=== PATIENT | female | born 1985 | race Caucasian/White ===

== ENCOUNTER 2023-02-07 06:11 | Emergency (ER) | payer OTHER, SELFPAY ==
[2023-02-07] VITALS (28 sets, daily range): BP systolic 115–148; BP diastolic 86–105; PULSE 0–86; RESP 10–34; O2SAT 95–100
--- NOTE | ~2023-02-07 | CT_ITS ---
EXAMINATION: CTA chest PE protocol DATE: 02/07/2023 08:53 INDICATION: Chest pain. TECHNIQUE: Computed tomography angiography (CTA) of the chest was performed with 100 mL Omnipaque-350 intravenous contrast timed to evaluate the pulmonary arteries. Coronal maximum intensity projection 3D-reconstructions were created by the technologist. Automated exposure control and iterative reconst ruction technique were employed. The dose-length product was 247.00 mGy-cm. COMPARISON: Chest single view 02/07/2023 FINDINGS: The lungs demonstrate minimal dependent atelectasis. No pleural effusion. There is no pulmo nary embolus. The heart size is normal. No pericardial effusion. There is cortical thinning of right kidney. There is mild thoracic spondylosis. IMPRESSION: 1. No pulmonary embolus. Reviewed, dictated and finalized at location A. IMPRESSION: 1. No pulmonary embolus.
--- NOTE | ~2023-02-07 | XR_ITS ---
Portable chest x-ray Comparison: None Clinical History: Chest pain Findings: Lungs are clear, without focal consolidation or pleural effusion. Cardiomediastinal silho uette is unremarkable. Bones and soft tissues are unremarkable. Impression: Normal chest. Reviewed, dictated and finalized at location M. Impression: Normal chest.
--- NOTE | 2023-02-07 06:21 | ECG_ITS ---
Measurements Intervals [place] Rate: 69 P: 54 TX: 205 QRS: -4 QRSD: 85 T: 22 QT: 364 QTc: 392 Interpretive Statements SINUS RHYTHM NORMAL ECG NO PREVIOUS ECG AVAILABLE FOR COMPARISON Electronically Signed On 02-07-2023 16:16:00 CDT by Alan Ardon M.D.
--- NOTE | 2023-02-07 07:14 | ED.CHESTPAIN ---
HPI - Chest Pain General Chief Complaint: Chest Pain Stated Complaint: chest pain Time Seen by Provider: 02/07/23 07:02 Source: RN notes reviewed History of Present Illness HPI narrative: Patient presents emergency room from home for chest pain. Patient states chest pain woke her from sleep approximately 5 AM this morning. The pain was located in the midsternal chest and was described as a heaviness in nature states that it did not radiate and it was associated with nausea and diaphoresis. Patient states that the pain is now resolved at this time lasted for approximately 10 minutes. States that she has had no pain since that time she denies any vomiting or diarrhea did note some mild shortness of breath with the pain. States that she has a history recently of having episode of chest pain gone to the ER approximately month ago and was diagnosed with bigeminy and placed on metoprolol at that time she is followed by Dr. Mclean for cardiology and had worn a Holter monitor for approximately week that did show some intermittent bigeminy following that. States that she usually feels when she is in her bigeminy and did not feel like at this morning but this felt different Related Data Home Medications Medication Instructions Recorded Confirmed etonogestrel 0.12 mg-ethinyl 1 vag ring vaginal ONCE 11/15/22 01/11/23 estradiol 0.015 mg/24 hr vaginal ring (NuvaRing) metoprolol succinate 50 mg 50 mg PO DAILY 01/11/23 tablet,extended release 24 hr Allergies Allergy/AdvReac Type Severity Reaction Status Date / Time No Known Allergies Allergy Unverified 01/11/23 09:42 Review of Systems Review of Systems: Gen.: Denies fevers or chills ENT: Denies congestion Respiratory: Denies cough, reports shortness of breath CV: see HPI GI: Denies abdominal pain emesis or diarrhea reports nausea denies Musculoskeletal: Denies back pain or muscle pain Neuro: Denies numbness, tingling, weakness or focal weakness Skin: Denies rash Except as documented, all other systems reviewed and negative [facility] Past Medical History Medical History (Updated 02/07/23 @ 10:44 by Lucas Reis DO) Bigeminy History of palpitations Social History Social History Smoking status: Unknown if ever smoked Alcohol intake: current Substance use: never Substance use type: does not use Lack of Transportation: No Lack of Food: Never True Current Housing: I Have Housing Concerned About Future Housing: No Difficulty Paying Gas/Electric Bills: No Difficulty Paying for Meds: No Currently Unemployed: No Education: High School Diploma/GED Difficulty w/ Childcare or Family Care: No Living arrangements: with family Occupation/Education: occupation Gender identity (if verbalized by the patient): Female Sexual Orientation (if Verbalized by the Patient): Straight or Heterosexual Exam Narrative: APPEARANCE: No acute distress, nontoxic, resting in bed EYES: EOMI HEENT: Normocephalic, atraumatic, OMM TMs clear bilaterally RESPIRATORY: No respiratory distress Clear to auscultation bilaterally with no rhonchi wheezing or rales. CARDIOVASCULAR: Regular rate and rhythm without murmurs rubs or gallops. ABDOMINAL: Soft, nontender, nondistended, no rebound or guarding MUSCULOSKELETAl: Moves all extremities. No clubbing, cyanosis or edema. NEURO: Awake and alert. Following commands, speech normal, no focal deficits SKIN:: Warm, dry. No rashes lesions or abrasions PSYCHIATRIC: Normal affect/mood, Course Course Emergency Course: Patient with episode of feeling hot and feels like she was going to pass out that then went evaluate the patient heart rate is in the 90s patient is awake and alert appears anxious Ativan given with improvement of symptoms Called and discussed with MILA Patton for Dr. Mclean presentation work-up for cardiology they reviewed the patient's office records
[2023-02-07 07:19] LABS: Basophils Percent Auto 0.2 % (0.2-1.2); Eosinophils Absolute Auto 0.2 K/mm3 (0-0.3); Eosinophils Percent Auto 4.4 % (0-4.4); Hematocrit 40.1 % (37.0-47.0); Hemoglobin 13.6 g/dL (12.0-15.0); Immature Granulocyte Absolute 0.01 K/mm3 (0.00-0.031); Immature Granulocyte Percent A 0.2 % (0-0.5); Lymphocytes Absolute Auto 1.69 K/mm3 (0.9-3.2); Lymphocytes Percent Auto 30.7 % (18.3-44.2); Mean Corpuscular HGB Conc 33.9 g/dl (32-36); Mean Corpuscular Hemoglobin 30.2 pg (26-34); Mean Corpuscular Volume 89.1 fl (80-100); Mean Platelet Volume 11.1 fl (7.4-10.4); Monocytes Absolute Auto 0.5 K/mm3 (0.1-0.6); Monocytes Percent Auto 9.6 % (2.6-8.5); Neutrophils Percent Auto 54.9 % (45.5-73.1); Platelet Count Result 150 k/mm3 (150-375); Red Cell Distribution Width 13.3 % (11.5-14.5); White Blood Count 5.5 K/mm3 (4.5-10.0)
[2023-02-07 07:31] LABS: Alanine Aminotransferase 22 U/L (6-35); Albumin Level 4.3 g/dL (3.5-5.1); Alkaline Phosphatase 85 U/L (38-126); Anion Gap 7 mmol/L (8-16); Aspartate Amino Transferase 27 U/L (14-36); Bilirubin,Total 0.8 mg/dL (0.2-1.3); Blood Urea Nitrogen 18 mg/dL (7-17); Calcium 8.5 mg/dL (8.4-10.2); Carbon Dioxide 26 mmol/L (22-30); Chloride 103 mmol/L (98-107); Estimated CRCL calculation 89 ml/min; Estimated Glomerular Filt Rate > 60; Glucose 91 mg/dL (65-110); Lipase 71 U/L (23-300); Potassium 4.3 mmol/L (3.4-5.0); Sodium 136 mmol/L (137-145)
[2023-02-07 07:43] LABS: Troponin I < 0.012 ng/mL (0.000-0.034)
--- NOTE | 2023-02-07 07:55 | PC.NURSE ---
called to pts room multiple times in a row for pt c/o feeling anxious and tingling in her extremities. 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
[2023-02-07 08:07] LABS: INR 0.9; Prothrombin Time 12.2 Seconds (11.1-14.7)
[2023-02-07 08:08] LABS: Partial Thromboplastin Time 22.3 SECONDS (22.3-36.8)
[2023-02-07] MEDS: LORazepam INJ (*CRX) 2 MG/ML VIAL 0.5 MG IV PUSH (08:13)
[2023-02-07] MEDS: SODIUM CHLORIDE 0.9% IV 1,000 ML 999 ML IV CONT (08:13)
--- NOTE | 2023-02-07 08:13 | PC.NURSE ---
ativan given per order. pillow provided. pt in position of comfort. room darkened.
[2023-02-07 08:18] LABS: D Dimer 1.05 ug/mL (<0.48)
[2023-02-07 10:31] LABS: Troponin I < 0.012 ng/mL (0.000-0.034)
== END 2023-02-07 10:49 | disposition home or self-care (01) ==
PROVIDERS: Emergency Provider Emergency Medicine; PCP Physician Assistant Medical
DX: R07.89 Other chest pain (principal); R00.8 Other abnormalities of heart beat
CPT/HCPCS: 36415; 71045; 71275; 80053; 81025; 83690; 84484; 85025; 85380; 85610; 85730; 93005; 96361; 96374; 99284; J2060; J7030; Q9967